=== PATIENT | female | born 1950 | race African-American/Black ===

== ENCOUNTER 2017-09-18 07:25 | Emergency (ER) | payer OTHER, MEDICARE ==
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
[2017-09-18] MEDS ORDERED: IBUPROFEN 600 MG TABLET PO ONE (09:04)
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
[2017-09-18 09:57] VITALS: BP 157/73
== END 2017-09-18 09:58 | disposition home or self-care (01) ==
LOC: ER 07:25
DX: T14.8XXA Other injury of unspecified body region, initial encounter (principal); R07.89 Other chest pain; M25.562 Pain in left knee; M79.644 Pain in right finger(s); V49.40XA Driver injured in collision with unspecified motor vehicles in traffic accident, initial encounter
CPT/HCPCS: 71020; 99283